=== PATIENT | female | born 1960 | race Two or more races ===

== ENCOUNTER 2023-07-12 11:35 | Emergency (ER) | payer OTHER ==
[2023-07-12 12:03] VITALS: TEMP 98.4; BMI 38.0
[2023-07-12] MEDS ORDERED: KETOROLAC TROMETHAMINE 30 MG/1 ML VIAL ONE (13:46)
[2023-07-12] MEDS ORDERED: METHOCARBAMOL 500 MG TABLET ONE (13:46)
[2023-07-12 13:56] LABS: BASO % 0.8 % (0-2.0); EOS % 1.4 % (0-4.5); HEMATOCRIT 36.7 % (32.4-45.2); HEMOGLOBIN 12.5 GM/dL (10.7-15.3); LYMPH % 38.1 % (8-40); MCH 30.1 pg (25.7-33.7); MCHC 34.2 g/dl (32.0-36.0); MEAN CELL VOLUME 88.2 fl (80-96); MONO % 9.7 % (3.8-10.2); PLATELET COUNT 367 10^3/uL (134-434); RBC 4.15 M/mm3 (3.60-5.2); RDW 13.3 % (11.6-15.6); WHITE BLOOD COUNT 5.9 K/mm3 (4.0-10.0)
[2023-07-12] MEDS: SODIUM CHLORIDE 0.9% 500 ML INFUS.BAG IV ONE (13:57)
[2023-07-12] MEDS: KETOROLAC TROMETHAMINE 30 MG/1 ML VIAL IVPUSH ONE (13:58)
[2023-07-12] MEDS: METHOCARBAMOL 750 MG TABLET PO ONE (13:58)
[2023-07-12 14:14] LABS: POTASSIUM 5.2 mmol/L (3.5-5.1)
[2023-07-12 14:16] LABS: ALBUMIN 3.2 g/dl (3.4-5.0); BLOOD UREA NITROGEN 24.4 mg/dL (7-18); CALCIUM 9.4 mg/dL (8.5-10.1)
[2023-07-12 14:19] LABS: CREATININE 1.6 mg/dL (0.55-1.3)
[2023-07-12 14:21] LABS: BILIRUBIN,TOTAL 0.4 mg/dL (0.2-1)
[2023-07-12 15:54] LABS: POTASSIUM 4.8 mmol/L (3.5-5.1)
[2023-07-12 15:56] LABS: CALCIUM 8.9 mg/dL (8.5-10.1)
[2023-07-12 15:57] LABS: ALBUMIN 2.9 g/dl (3.4-5.0); BLOOD UREA NITROGEN 24.2 mg/dL (7-18)
[2023-07-12 16:00] LABS: CREATININE 1.5 mg/dL (0.55-1.3)
[2023-07-12 16:01] LABS: TOT PROT 6.3 g/dl (6.4-8.2)
[2023-07-12 16:02] LABS: BILIRUBIN,TOTAL 0.4 mg/dL (0.2-1)
[2023-07-12] MEDS ORDERED: INSULIN REGULAR HUMAN 100 UNITS/ML *VIAL ONE (17:08)
[2023-07-12] MEDS: INSULIN REGULAR HUMAN 100 UNITS/ML *VIAL SQ ONE (17:11)
[2023-07-12 19:57] VITALS: BP 150/85; PULSE 73; RESP 18
== END 2023-07-12 20:22 | disposition home or self-care (01) ==
LOC: JER 11:35
PROC: 3E0333Z Introduction of Anti-inflammatory into Peripheral Vein, Percutaneous Approach (ICD-10-PCS; principal; 2023-07-12)
PROC: 3E013VG Introduction of Insulin into Subcutaneous Tissue, Percutaneous Approach (ICD-10-PCS; 2023-07-12)
DX: R52 Pain, unspecified (principal); R51.9 Headache, unspecified; R42 Dizziness and giddiness; R68.83 Chills (without fever); R00.0 Tachycardia, unspecified; Z20.822 Contact with and (suspected) exposure to COVID-19
CPT/HCPCS: 0241U-QW; 36415; 80053; 82962; 85025; 99284-25

== ENCOUNTER 2024-08-11 13:20 | Observation (INO) | payer OTHER ==
[2024-08-11 13:46] VITALS: BMI 41.3
[2024-08-11 14:33] LABS: VENOUS BASE EXCESS 0.1 mmol/L (-2-2); VENOUS O2 SATURATION 60.7 % (70-80); VENOUS PCO2 49.8 mmHg (38-52); VENOUS PH 7.341 (7.310-7.410)
[2024-08-11 14:44] LABS: ABSOLUTE IMMATURE GRANULOCYTES 0.02 x10^3/uL (0.0-0.031); BASOPHILS # 0.03 x10^3/uL (0.01-0.08); EOSINOPHIL % 3.2 % (0.7-5.8); EOSINOPHILS # 0.18 x10^3/uL (0.04-0.36); HEMATOCRIT 31.7 % (34.1-44.9); HEMOGLOBIN 10.4 g/dL (11.2-15.7); MCHC 32.8 g/dl (32.2-35.5); MEAN CELL VOLUME 87.3 fl (79.4-94.8); MONOCYTE # 0.67 x10^3/uL (0.24-0.86); MONOCYTE % 11.8 % (4.7-12.5); PLATELET COUNT 389 x10^3/uL (182-369); RDW 14.2 % (12.4-16.4)
[2024-08-11 14:51] LABS: INR 0.98 (0.83-1.09); PROTHROMBIN TIME (PATIENT) 10.8 SEC (9.7-13.0)
[2024-08-11 14:54] LABS: ACTIVATED PTT 38.3 SECONDS (25.2-36.5)
[2024-08-11 15:13] LABS: POTASSIUM 4.7 mmol/L (3.5-5.1)
[2024-08-11 15:15] LABS: BLOOD UREA NITROGEN 24.4 mg/dL (7-18); CALCIUM 8.9 mg/dL (8.5-10.1)
[2024-08-11 15:16] LABS: ALBUMIN 2.9 g/dl (3.4-5.0); MAGNESIUM 1.8 mg/dL (1.8-2.4)
[2024-08-11 15:20] LABS: BILIRUBIN,TOTAL 0.3 mg/dL (0.2-1); TOT PROT 6.4 g/dl (6.4-8.2)
[2024-08-11 15:24] LABS: N-TERMINAL BNP 107.1 pg/ml (5-125)
[2024-08-11 15:25] LABS: EPI CELLS 22 /uL (0-25.1); HYALINE CASTS 1 /uL (0-3.1); URINE APPEARANCE CLEAR; URINE BACTERIA 7 /uL (0-1359); URINE BILIRUBIN NEGATIVE (NEGATIVE); URINE COLOR YELLOW; URINE GLUCOSE (UA) TRACE (NEGATIVE); URINE KETONE NEGATIVE (NEGATIVE); URINE LEUK ESTERASE NEGATIVE (NEGATIVE); URINE NITRITE NEGATIVE (NEGATIVE); URINE PROTEIN 3+ (NEGATIVE); URINE RBC 2 /uL (0-23.9); URINE UROBILINOGEN 0.2 mg/dL (0.2-1.0); URINE WBC 2 /uL (0-25.8)
[2024-08-11] MEDS ORDERED: FUROSEMIDE 40 MG/4 ML INJECTABLE VIAL ONE (16:29)
[2024-08-11] MEDS: FUROSEMIDE 40 MG/4 ML INJECTABLE VIAL IVPUSH ONE (16:42)
[2024-08-11] MEDS: INSULIN ASPART SLIDING SCALE (NOVOLOG) 1 VIAL SQ SCH (18:12)
[2024-08-11] MEDS: INSULIN GLARGINE (LANTUS) 100 UNITS/ML UNITS SQ SCH (21:25)
[2024-08-11] MEDS: ATORVASTATIN CA 40 MG TABLET (FP) PO SCH (21:26)
[2024-08-11] MEDS: BUDESONIDE/FORMETEROL FUMARATE 160/4.5 mcg INHALER IH SCH (21:26)
[2024-08-12 08:52] LABS: HEMOGLOBIN 10.8 g/dL (11.2-15.7); MCHC 31.8 g/dl (32.2-35.5); MEAN CELL VOLUME 86.7 fl (79.4-94.8); MEAN PLT VOLUME 8.6 fl (9.4-12.3); PLATELET COUNT 387 x10^3/uL (182-369); RDW 14.4 % (12.4-16.4)
[2024-08-12 09:14] LABS: POTASSIUM 4.6 mmol/L (3.5-5.1)
[2024-08-12 09:19] LABS: CALCIUM 9.2 mg/dL (8.5-10.1)
[2024-08-12 09:20] LABS: BLOOD UREA NITROGEN 23.8 mg/dL (7-18)
[2024-08-12 09:23] LABS: PHOSPHOROUS 4.6 mg/dL (2.5-4.9)
[2024-08-12] MEDS: ASPIRIN 81 MG CHEWABLE TABLETS PO SCH (10:27)
[2024-08-12] MEDS: INSULIN GLARGINE (LANTUS) 100 UNITS/ML UNITS SQ SCH (12:44)
[2024-08-12] MEDS: ACETAMINOPHEN 325 MG TABLET (FP) PO PRN (17:03)
[2024-08-12] MEDS: LABETALOL HCL 100 MG TABLET (FP) PO SCH (21:38)
[2024-08-13 06:57] VITALS: RESP 18
[2024-08-13 09:33] LABS: POTASSIUM 4.7 mmol/L (3.5-5.1)
[2024-08-13 09:39] LABS: CALCIUM 9.2 mg/dL (8.5-10.1)
[2024-08-13 09:40] LABS: ALBUMIN 2.7 g/dl (3.4-5.0)
[2024-08-13 09:43] LABS: CREATININE 2.1 mg/dL (0.55-1.3)
[2024-08-13 09:44] LABS: BILIRUBIN,TOTAL 0.4 mg/dL (0.2-1); TOT PROT 6.1 g/dl (6.4-8.2)
[2024-08-13] MEDS ORDERED: INSULIN ASPART SLIDING SCALE (NOVOLOG) 1 VIAL SQ ONE ×2 (11:09→17:55)
[2024-08-14 08:41] LABS: ABSOLUTE IMMATURE GRANULOCYTES 0.01 x10^3/uL (0.0-0.031); BASOPHILS # 0.02 x10^3/uL (0.01-0.08); EOSINOPHIL % 1.2 % (0.7-5.8); EOSINOPHILS # 0.06 x10^3/uL (0.04-0.36); HEMATOCRIT 32.1 % (34.1-44.9); HEMOGLOBIN 10.3 g/dL (11.2-15.7); MCHC 32.1 g/dl (32.2-35.5); MEAN CELL VOLUME 86.8 fl (79.4-94.8); MEAN PLT VOLUME 8.6 fl (9.4-12.3); MONOCYTE % 13.4 % (4.7-12.5); PLATELET COUNT 355 x10^3/uL (182-369); RDW 14.1 % (12.4-16.4)
[2024-08-14 08:57] LABS: POTASSIUM 4.8 mmol/L (3.5-5.1)
[2024-08-14 09:02] LABS: BLOOD UREA NITROGEN 32.3 mg/dL (7-18); CALCIUM 8.9 mg/dL (8.5-10.1)
[2024-08-14 09:03] LABS: ALBUMIN 2.6 g/dl (3.4-5.0)
[2024-08-14 09:06] LABS: CREATININE 2.1 mg/dL (0.55-1.3)
[2024-08-14 09:07] LABS: BILIRUBIN,TOTAL 0.4 mg/dL (0.2-1); TOT PROT 5.9 g/dl (6.4-8.2)
[2024-08-14] MEDS: INSULIN (NOVOLOG) ASPART 100 UNITS/ML 10ML VIAL SQ SCH (11:44)
[2024-08-14 15:59] VITALS: BP 133/84; PULSE 76; TEMP 97.9
== END 2024-08-14 16:50 | disposition home or self-care (01) ==
LOC: JER 13:20 → JERBED 15:31 → J5S 20:12
PROVIDERS: ADMIT Student in an Organized Health Care Education/Training Program
PROC: 3E013VG Introduction of Insulin into Subcutaneous Tissue, Percutaneous Approach (ICD-10-PCS; principal; 2024-08-11)
PROC: 3E033GC Introduction of Other Therapeutic Substance into Peripheral Vein, Percutaneous Approach (ICD-10-PCS; 2024-08-11)
DX: E11.22 Type 2 diabetes mellitus with diabetic chronic kidney disease (principal); I12.9 Hypertensive chronic kidney disease with stage 1 through stage 4 chronic kidney disease, or unspecified chronic kidney disease; N18.9 Chronic kidney disease, unspecified; E87.70 Fluid overload, unspecified; R06.09 Other forms of dyspnea; N17.9 Acute kidney failure, unspecified; R19.7 Diarrhea, unspecified; M79.7 Fibromyalgia; J45.909 Unspecified asthma, uncomplicated; M19.90 Unspecified osteoarthritis, unspecified site
CPT/HCPCS: 0241U-QW; 36415; 71045-TC-FY; 80048; 80053; 80061; 81003; 82803; 82962; 83036; 83735; 83880; 84100; 84439; 84443; 84484; 85025; 85027; 85610; 85730; 86850; 86900; 86901; 87086; 93005; 93010; 93306-TC; 96372; 96374; 97116-GP; 97161-GP; 99285-25; G0378

== ENCOUNTER 2024-10-05 13:07 | Emergency (ER) | payer OTHER ==
[2024-10-05 13:16] VITALS: RESP 16; TEMP 98.4; BMI 39.6
[2024-10-05 14:37] LABS: VENOUS BASE EXCESS 0.2 mmol/L (-2-2); VENOUS O2 SATURATION 48.9 % (70-80); VENOUS PCO2 46.9 mmHg (38-52); VENOUS PH 7.362 (7.310-7.410)
[2024-10-05 14:45] LABS: INR 0.94 (0.83-1.09); PROTHROMBIN TIME (PATIENT) 10.3 SEC (9.7-13.0)
[2024-10-05 14:48] LABS: ACTIVATED PTT 36.1 SECONDS (25.2-36.5)
[2024-10-05 14:54] LABS: URINE APPEARANCE CLEAR; URINE BILIRUBIN NEGATIVE (NEGATIVE); URINE COLOR YELLOW; URINE GLUCOSE (UA) 2+ (NEGATIVE); URINE KETONE NEGATIVE (NEGATIVE); URINE LEUK ESTERASE NEGATIVE (NEGATIVE); URINE NITRITE NEGATIVE (NEGATIVE); URINE PROTEIN 3+ (NEGATIVE); URINE UROBILINOGEN 0.2 mg/dL (0.2-1.0)
[2024-10-05 15:01] LABS: ABSOLUTE IMMATURE GRANULOCYTES 0.02 x10^3/uL (0.0-0.031); BASOPHILS # 0.03 x10^3/uL (0.01-0.08); EOSINOPHIL % 1.8 % (0.7-5.8); EOSINOPHILS # 0.13 x10^3/uL (0.04-0.36); HEMATOCRIT 34.5 % (34.1-44.9); HEMOGLOBIN 11.1 g/dL (11.2-15.7); MCHC 32.2 g/dl (32.2-35.5); MEAN CELL VOLUME 87.3 fl (79.4-94.8); MEAN PLT VOLUME 9.6 fl (9.4-12.3); MONOCYTE # 0.93 x10^3/uL (0.24-0.86); MONOCYTE % 12.7 % (4.7-12.5); PLATELET COUNT 378 x10^3/uL (182-369); RDW 13.8 % (12.4-16.4)
[2024-10-05 15:02] LABS: POTASSIUM 4.3 mmol/L (3.5-5.1)
[2024-10-05 15:03] LABS: EPI CELLS 33.2 /uL (0-25.1); HYALINE CASTS 0.12 /uL (0-3.1); URINE BACTERIA 1126.7 /uL (0-1359); URINE RBC 14.1 /uL (0-23.9); URINE WBC 42 /uL (0-25.8)
[2024-10-05 15:06] LABS: ALBUMIN 2.8 g/dl (3.4-5.0); BLOOD UREA NITROGEN 32.2 mg/dL (7-18); CALCIUM 9.2 mg/dL (8.5-10.1)
[2024-10-05 15:10] LABS: CREATININE 2.3 mg/dL (0.55-1.3)
[2024-10-05 15:11] LABS: BILIRUBIN,TOTAL 0.3 mg/dL (0.2-1); TOT PROT 6.2 g/dl (6.4-8.2)
[2024-10-05 15:14] LABS: N-TERMINAL BNP 59.9 pg/ml (5-125)
[2024-10-05 16:01] LABS: HIV INTERPRETATION NEGATIVE (NEGATIVE)
[2024-10-05 16:02] LABS: HCV DIAGNOSTIC IN-HOUSE W/RFLX NON-REACTIVE (NONREACTIVE)
[2024-10-05] MEDS ORDERED: CEFTRIAXONE 1 G/50 ML PREMIX 50 ML IVPB ONE (16:08)
[2024-10-05] MEDS: CEFTRIAXONE 1,000 MG in DEXTROSE 5%-WATER - 50 ML IVPB ONE (16:14)
[2024-10-05 19:00] VITALS: BP 145/80; PULSE 89
== END 2024-10-05 19:00 | disposition home or self-care (01) ==
LOC: JER 13:07
DX: N39.0 Urinary tract infection, site not specified (principal); R60.0 Localized edema; R06.02 Shortness of breath; R07.2 Precordial pain; R05.9 Cough, unspecified; R10.13 Epigastric pain; R10.30 Lower abdominal pain, unspecified; R35.0 Frequency of micturition; R14.0 Abdominal distension (gaseous)
CPT/HCPCS: 0241U-QW; 36415; 71045-TC-FY; 80053; 81003; 82803; 83735; 83880; 84484; 85025; 85379; 85610; 85730; 86803; 86850; 86900; 86901; 87086; 87389; 93005; 93010; 93970-TC; 99285-25